=== PATIENT | male | born 1970 | race African-American/Black ===

== ENCOUNTER 2016-08-07 11:52 | Emergency (ER) | payer MEDICAID ==
[~2016-08-07] VITALS: Ht 177.8 cm; Wt 95.0 kg
[2016-08-07 14:23] VITALS: BP 140/85
== END 2016-08-07 14:29 | disposition home or self-care (01) ==
LOC: ER 13:29
DX: K04.7 Periapical abscess without sinus (principal)
CPT/HCPCS: 99283